=== PATIENT | female | born 1955 | race Hispanic/Latino ===

== ENCOUNTER → 2018-06-18 | Outpatient (CLI) | payer OTHER | END | disposition home or self-care (01) | LOC: RAH 10:00 | PROVIDERS: ATTEND Family Medicine | DX: Z12.31 Encounter for screening mammogram for malignant neoplasm of breast (principal) | CPT/HCPCS: 77067 ==

== ENCOUNTER → 2020-07-16 | Outpatient (CLI) | payer OTHER | END | disposition home or self-care (01) | LOC: RAH 10:09 | PROVIDERS: ATTEND Family Medicine | DX: Z12.31 Encounter for screening mammogram for malignant neoplasm of breast (principal) | CPT/HCPCS: 77067 ==

== ENCOUNTER → 2021-12-26 | Outpatient (CLI) | payer OTHER | END | disposition home or self-care (01) | LOC: LAB 09:46 | PROVIDERS: ATTEND Family Medicine | DX: S90.119A Contusion of unspecified great toe without damage to nail, initial encounter (principal); M21.071 Valgus deformity, not elsewhere classified, right ankle; M19.071 Primary osteoarthritis, right ankle and foot; X58.XXXA Exposure to other specified factors, initial encounter; Y93.89 Activity, other specified; Y92.89 Other specified places as the place of occurrence of the external cause; Y99.8 Other external cause status | CPT/HCPCS: 73630 ==

== ENCOUNTER → 2022-06-09 | Outpatient (CLI) | payer OTHER | END | disposition home or self-care (01) | LOC: RAH 09:40 | PROVIDERS: ATTEND Family Medicine | DX: Z12.31 Encounter for screening mammogram for malignant neoplasm of breast (principal) | CPT/HCPCS: 77067 ==

== ENCOUNTER → 2024-04-13 | Outpatient (CLI) | payer OTHER ==
--- NOTE | 2024-04-13 14:48 | HMCIMG ---
DEXA BONE DENSITY SURVEY HISTORY: Osteoporosis COMPARISON: None FINDINGS: Bone densitometry study was performed. Bone mineral density of the lumbar spine is 1.291 gram per centimeter square which corresponds to a T score of 2.2 and a Z score of 4.3. Bone mineral density of the left hip is 1.007 grams per centimeter square which corresponds to a T score of 0.3 and a Z score of 1.7. IMPRESSION: 1. Normal bone mineral density of the lumbar spine and left hip.
== END | disposition home or self-care (01) ==
LOC: RAH 13:08
PROVIDERS: ATTEND Internal Medicine
DX: Z13.820 Encounter for screening for osteoporosis (principal); M81.0 Age-related osteoporosis without current pathological fracture
CPT/HCPCS: 77080